=== PATIENT | male | born 2000 | race Two or more races ===

== ENCOUNTER 2025-01-07 17:33 | Emergency (ER) | payer MEDICAID, SELFPAY ==
[2025-01-07 17:54] VITALS: BP 111/77; PULSE 108; RESP 18; TEMP 37.7; O2SAT 99; BMI 31.9
--- NOTE | 2025-01-07 18:21 | PD.EDDENTL ---
ED Dental RME/HPI General Chief complaint: Fever Stated complaint: FEVER X 1 WK; TONSILS INFLAMMED; 0800 MOTRIN 800MG Time Seen by Provider: 01/07/25 18:01 Source: patient Arrival date/time: 01/07/25 17:33 This is a 24-year-old male who presents to the emergency department with complaints of bilateral swelling of tonsils with exudate. Patient reports he has been ill for 1 week with fevers, throat pain. He was evaluated by his PCP he was given 1 shot patient does not recall the name of the medication that was given. However he states he still continues to have fevers. Denies chest pain, difficulty breathing, difficulty swallowing. Related Data Home Medications ?Medication ?Instructions ?Recorded ?Confirmed ciprofloxacin HCl 500 mg tablet 500 mg PO Q12H 06/05/22 06/05/22 (Cipro) phenazopyridine 200 mg tablet 200 mg PO TID 06/05/22 06/05/22 Previous Rx's ?Medication ?Instructions ?Recorded clindamycin HCl 300 mg capsule 300 mg PO Q8H 7 days #21 caps 01/07/25 Allergies Allergy/AdvReac Type Severity Reaction Status Date / Time No Known Allergies Allergy Verified 01/07/25 17:36 Review of Systems Review of Systems Systems Reviewed: All systems reviewed, normal except as documented Narrative Review of Systems: Gen: ++fever, no chills, no weight loss EYES: No discharge, no visual changes, no pain HEENT: No ear pain, no congestion, ++ sore throat PULM: No shortness of breath, no cough, no congestion CV: No chest pain, no dyspnea on exertion, no palpitations GI: No nausea, no vomiting, no diarrhea, no pain, no constipation : No frequency, no urgency,? no dysuria Musc/skel: No joint pain, no back pain Skin: No rash? Psyc: No hallucinations, no depression Heme/Lymph: No easy bleeding or bruising tendencies Neuro: No weakness, no headache Course Quality Measures none Orders Category Date Time Status Clindamycin Vial [Cleocin vial] Med 01/07/25 18:14 Discontinued 600 mg IM X1 ONE Dexamethasone Inj [Decadron Inj] Med 01/07/25 18:14 Discontinued 10 mg PO X1 ONE Vital Signs Vital signs: Vital Signs Temperature 99.8 F 01/07/25 17:54 Pulse Rate 108 H 01/07/25 17:54 Respiratory Rate 18 01/07/25 17:54 Blood Pressure 111/77 01/07/25 17:54 Pulse Oximetry (%) 99 01/07/25 17:54 Oxygen Delivery Method Room Air 01/07/25 17:54 Dental / Oral MDM Narrative MDM Narrative:: Pt made aware will treat as presumptive streptococcal pharyngitis based on sypmtoms. Centor criteria 4, will start abx empirically.because I am unsure if the patient received Bicillin shot I will go ahead and put him on clindamycin . Patient is to receive his first dose here, and dexamethasone for swelling of his tonsils. Advised to take OTC NSAID prn pain or fevers. Fluids, soups, tea, honey advised. Use humidifier at nights. Replace toothbrush. At this time patient is stable for discharge. Strict ER precautions given.. Patient data External records reviewed:: [facility] previous records Clinical information provided by:: patient Social determinants that could affect healthcare access:: none Patient has the following chronic illnesses:: None How is presenting disease/condition affected by chronic disease/condition?: no chronic disease Evaluation data The following diagnostics were reviewed and interpreted by me:: other (specify) Lab and/or radiology exams considered but not ordered:: No Interpretation Summary: Not applicable Medications / Prescriptions Medications or Prescriptions considered but not ordered:: Pain medication Medication administrations:: Medication Administration History Discontinued Medications Clindamycin Phosphate (Clindamycin Phos Inj 150 Mg/Ml Vial 6 Ml) 600 mg IM X1 ONE Stop: 01/07/25 18:15 Last Admin: 01/07/25 18:46 Dose: 600 mg Documented By: Dexamethasone Sodium Phosphate (Dexamethasone Sod Phos Inj 10 Mg/Ml Vial) 10 mg PO X1 ONE Stop: 01/07/25 18:15 Last Admin: 01/07/25 18:46 Dose: 10 mg Documented By: All medications administered and effective Consultations Consultation(s) initiated? (list below): No Diagnosis Most likely diagnosis given after review of the tests above:: Strep pharyngitis Admission Indicated Admission indicated?: not indicated Admission Request Was there a request for admission?: No Disposition Plan Disposition Plan: Discharge Discharge Attestation Discharge Attestation: The patient and all family members were given an opportunity to ask questions and understood the discharge instructions. Discharge instructions specifically effects, indications for sooner follow up or return to the emergency department, and the expected course of current diagnosis. Patient condition: Stable Discharge Plan Plan Patient Disposition: HOME (Self Care) Patient condition on transfer: Stable Prescriptions/Referrals Prescriptions/Med Rec: New clindamycin HCl 300 mg capsule 300 mg PO Q8H 7 Days Qty: 21 0RF No Action phenazopyridine 200 mg Tablet 200 mg PO TID ciprofloxacin HCl [Cipro] 500 mg Tablet 500 mg PO Q12H Problem List Clinical Impression: Acute streptococcal pharyngitis Patient/Caregiver Discharge Instructions Discharge Activity: activity as tolerated Education Materials: ED Pharyngitis, Strep (Presumed) Additional Instructions: Please do warm salt gargles 3 times a day. Take your oral antibiotics as directed. Can alternate between Tylenol ibuprofen for pain or fever control. Follow-up with your primary doctor in 2 days. Return the emergency department this any worsening symptoms change in condition. Print Language: Japanese Stand Alone Forms: Kimmie Award Info., Patient Portal Info Letter CHELSY/KANDIS Supervising Physician CHELSY/KANDIS Supervising Physician: estevan
[2025-01-07] MEDS: CLINDAMYCIN PHOS INJ 150 MG/ML VIAL 6 ML 600 MG IM (18:46)
[2025-01-07] MEDS: DEXAMETHASONE SOD PHOS INJ 10 MG/ML VIAL PO (18:46)
== END 2025-01-07 19:19 | disposition home or self-care (01) ==
LOC: SERX 18:42
PROVIDERS: Emergency Provider Emergency Medicine
DX: J02.0 Streptococcal pharyngitis (principal)
CPT/HCPCS: 96372; 99283; J0736; J1100

== ENCOUNTER 2025-03-04 13:37 | Emergency (ER) | payer MEDICAID, SELFPAY ==
[2025-03-04 13:45] VITALS: BP 134/87; PULSE 110; RESP 18; TEMP 39.4; O2SAT 100; BMI 30.7
[2025-03-04] MEDS: IBUPROFEN TAB 600 MG TABLET PO (14:35)
[2025-03-04 14:36] VITALS: TEMP 39.4
[2025-03-04] MEDS: ACETAMINOPHEN 500 MG TABLET 1000 MG PO (14:36)
[2025-03-04] MEDS: DEXAMETHASONE SOD PHOS INJ 10 MG/ML VIAL PO (14:37)
[2025-03-04] MEDS: PEN G BENZ (Bicillin LA) 1.2 MMU/2 ML SYRG 2.4 MMU IM (14:57)
[2025-03-04 15:35] VITALS: TEMP 38.2
--- NOTE | 2025-03-04 15:36 | PD.EDADULT ---
ED General RME/HPI General Chief complaint: General Adult/Misc Complain Stated complaint: SWOLLEN TONSILS Time Seen by Provider: 03/04/25 13:59 Source: patient Arrival date/time: 03/04/25 13:37 24-year-old male with no known medical history presents to the emergency room with a chief complaint of sore throat, and swollen tonsils x 3 days Mode of arrival: ambulatory Limitations: no limitations Related Data Home Medications ?Medication ?Instructions ?Recorded ?Confirmed ciprofloxacin HCl 500 mg tablet 500 mg PO Q12H 06/05/22 06/05/22 (Cipro) phenazopyridine 200 mg tablet 200 mg PO TID 06/05/22 06/05/22 Previous Rx's ?Medication ?Instructions ?Recorded amoxicillin 875 mg-potassium 1 tab PO BID 7 days #14 tabs 03/04/25 clavulanate 125 mg tablet Allergies Allergy/AdvReac Type Severity Reaction Status Date / Time No Known Allergies Allergy Verified 03/04/25 13:41 Review of Systems Review of Systems Systems Reviewed: All systems reviewed, normal except as documented Constitutional Constitutional: Reports system reviewed and no additional complaints, except as documented, Denies fatigue, Denies fever(s), Denies headache(s) and Denies weakness Eyes Eyes: Reports system reviewed and no additional complaints, except as documented, Denies blurry vision and Denies change in vision ENT Ears, Nose, Mouth, and Throat: Reports system reviewed and no additional complaints, except as documented, Denies otalgia, Denies headache(s), Denies nasal congestion, Reports sore throat, Denies throat swelling and Denies vertigo Cardiovascular Cardiovascular: Reports system reviewed and no additional complaints, except as documented, Denies chest pain, Denies dyspnea and Denies dyspnea on exertion Respiratory Respiratory: Reports system reviewed and no additional complaints, except as documented, Denies chest congestion, Denies cough, Denies dyspnea, Denies dyspnea on exertion and Denies wheezing Gastrointestinal Gastrointestinal: Reports system reviewed and no additional complaints, except as documented, Denies abdominal pain, Denies cramping, Denies nausea and Denies vomiting Genitourinary Genitourinary: Reports system reviewed and no additional complaints, except as documented, Denies dysuria and Denies hematuria Musculoskeletal Musculoskeletal: Reports system reviewed and no additional complaints, except as documented and Denies back pain Integumentary/Breasts Skin/Breast: Reports system reviewed and no additional complaints, except as documented and Denies wounds Neurologic Neurologic: Reports system reviewed and no additional complaints, except as documented, Denies confusion, Denies headache(s), Denies lack of coordination, Denies vertigo and Denies weakness Psychiatric Psychiatric: Reports system reviewed and no additional complaints, except as documented, Denies anxiety, Denies confusion, Denies depression, Denies paranoia, Denies suicidal ideation and Denies tactile hallucinations Endocrine Endocrine: Reports system reviewed and no additional complaints, except as documented and Denies fatigue Hematologic/Lymphatic Hematologic/Lymphatic: Reports system reviewed and no additional complaints, except as documented and Denies lymphadenopathy Allergic/Immunologic Allergic/Immunologic: Reports system reviewed and no additional complaints, except as documented, Denies throat swelling, Denies urticaria and Denies wheezing Past Medical History Social History SMOKING STATUS: Never smoker ED Exam General Limitations: Present no limitations General appearance: Present alert and in no apparent distress Head Head exam: Present atraumatic Eye Eye exam: Present normal appearance, PERRL and EOMI ENT ENT exam: Present normal exam, normal oropharynx and mucous membranes moist Expanded ENT Exam External ear exam: Present normal external inspection Mouth exam: Present normal external inspection Teeth exam: Present normal inspection Throat exam: Present tonsillar erythema, tonsillomegaly and tonsillar exudate; Absent R peritonsillar mass, L peritonsillar mass or muffled voice Neck Neck exam: Present normal inspection, full ROM and trachea midline Chest Chest inspection: Present normal inspection and symmetric chest wall rise Respiratory Respiratory exam: Present normal lung sounds bilaterally Cardiovascular Cardiovascular exam: Present regular rate, normal rhythm and normal heart sounds Abdominal Exam Abdominal exam: Present soft and normal bowel sounds Extremities Exam Extremities exam: Present normal inspection and full ROM Back Exam Back exam: Present normal inspection and full ROM Neurological Exam Neurological exam: Present alert, oriented X3 and CN II-XII intact Psychiatric Psychiatric exam: Present normal affect and normal mood Skin Skin exam: Present warm, dry, intact and normal color Course Quality Measures none Orders Category Date Time Status Acetaminophen Tab [Tylenol ES Tab] Med 03/04/25 13:58 Discontinued 1,000 mg PO X1 ONE Dexamethasone Inj [Decadron Inj] Med 03/04/25 13:58 Discontinued 10 mg PO X1 ONE Ibuprofen Tab [Motrin Tab] Med 03/04/25 13:58 Discontinued 600 mg PO X1 ONE PEN G FELICIA (Bicillin LA) [Bicillin La Inj] Med 03/04/25 13:58 Discontinued 2.4 mmu IM X1 ONE Vital Signs Vital signs: Vital Signs Temperature 103 F H 03/04/25 13:45 Pulse Rate 110 H 03/04/25 13:45 Respiratory Rate 18 03/04/25 13:45 Blood Pressure 134/87 H 03/04/25 13:45 Pulse Oximetry (%) 100 03/04/25 13:45 Oxygen Delivery Method Room Air 03/04/25 13:45 O2 saturation 100% within normal limits Discharge Plan Plan Patient Disposition: HOME (Self Care) Disposition Comment: Stable Prescriptions/Referrals Prescriptions/Med Rec: New amoxicillin-pot clavulanate 875-125 mg tablet 1 tab PO BID 7 Days Qty: 14 0RF No Action phenazopyridine 200 mg Tablet 200 mg PO TID ciprofloxacin HCl [Cipro] 500 mg Tablet 500 mg PO Q12H Problem List Clinical Impression: Pharyngitis Patient/Caregiver Discharge Instructions Additional Instructions: Please follow-up with your primary care provider in the next 24 to 48 hours. Medication was sent to your pharmacy please pick it up and take it as indicated. For any evidence of worsening signs or symptoms return to the emergency room immediately Print Language: Azeri Stand Alone Forms: Kimmie Award Info., Patient Portal Info Letter PA/STENCIL INSPECTOR Supervising Physician PA/KANDIS Supervising Physician: Dr. Monte MDM Patient Acuity Low Acuity (complete MDM as needed) Narrative: 24-year-old male with no known medical history presents to the emergency room with a chief complaint of sore throat, and swollen tonsils x 3 days Patient is febrile at 103 and tachycardic at 110. Antipyretics were given with significant improvement to the patient's symptoms. Physical examination shows an erythemic posterior pharynx with exudates to the bilateral tonsillar pillars. The findings are consistent with pharyngitis. There is no left-sided or right-sided peritonsillar abscess on my examination. There is no trismus or muffled voice. Antibiotics were given to the patient. Patient was given strict return precautions in 48 hours if his symptoms did not get any better. Patient was discharged and educated to follow-up with primary care provider in the next 24 to 48 hours and return to the emergency room for any evidence of worsening signs or symptoms Clinical Information Provided by: none Medical Records reviewed None Meds/Rx considered, not ordered None Labs/Rad/Tests considered, not ordered None Chronic Illness/Social Conditions which may negatively complicate care or outcome(s)-explain: None or not applicable EKG EKG not done Labs Labs: Interpreted by me Imaging Imaging interpretation: Interpreted by me Medication Administration(s) Medication Administration History Discontinued Medications Acetaminophen (Acetaminophen 500 Mg Tablet) 1,000 mg PO X1 ONE Stop: 03/04/25 13:59 Last Admin: 03/04/25 14:36 Dose: 1,000 mg Documented By: Dexamethasone Sodium Phosphate (Dexamethasone Sod Phos Inj 10 Mg/Ml Vial) 10 mg PO X1 ONE Stop: 03/04/25 13:59 Last Admin: 03/04/25 14:37 Dose: 10 mg Documented By: Ibuprofen (Ibuprofen Tab 600 Mg Tablet) 600 mg PO X1 ONE Stop: 03/04/25 13:59 Last Admin: 03/04/25 14:35 Dose: 600 mg Documented By: Penicillin G Benzathine (Pen G Felicia (Bicillin La) 1.2 Mmu/2 Ml Syrg) 2.4 mmu IM X1 ONE Stop: 03/04/25 13:59 Last Admin: 03/04/25 14:57 Dose: 2.4 mmu Documented By: Diagnosis Differential Diagnosis ED Complaint MDM: Pharyngitis/tonsillitis/upper respiratory infection/peritonsillar abscess Diagnoses ruled out: Upper respiratory infection/tonsillitis/peritonsillar abscess
[2025-03-04 15:41] VITALS: TEMP 38.2
== END 2025-03-04 15:42 | disposition home or self-care (01) ==
LOC: SERX 15:17
PROVIDERS: Emergency Provider Emergency Medicine; PCP Family Medicine
DX: J02.9 Acute pharyngitis, unspecified (principal)
CPT/HCPCS: 96372; 99283; J0561; J1100; A9270

== ENCOUNTER 2025-03-07 15:18 | Emergency (ER) | payer MEDICAID, SELFPAY ==
[2025-03-07 15:27] VITALS: BP 126/82; PULSE 107; RESP 18; TEMP 37.4; O2SAT 97
--- NOTE | 2025-03-07 15:39 | PD.EDDENTL ---
ED Dental RME/HPI General Chief complaint: Dental/Oral/Throat Stated complaint: SWOLLEN TONSILS; CAME IN ON 03/04; NO IMPROVEMENT Time Seen by Provider: 03/07/25 15:25 Arrival date/time: 03/07/25 15:18 Mode of arrival: ambulatory Limitations: no limitations RME / HPI RME / HPI Narrative: 24-year-old male presents urgent care with complaint of swollen tonsils. Patient had been seen this last Saturday and diagnosed with tonsillitis given a shot of Bicillin and sent home with Augmentin. Patient tells me he has not gotten any better. Continues to have difficulty swallowing, weak and continues to swallow fluids. Onset (ago): week(s) (1 week) Severity: mild Severity scale (1-10): 4 Exacerbating factors: drinking fluids and swallowing Associated symptoms: fever Treatment prior to arrival: other (Bicillin, Augmentin) Related Data Home Medications ?Medication ?Instructions ?Recorded ?Confirmed ciprofloxacin HCl 500 mg tablet 500 mg PO Q12H 06/05/22 06/05/22 (Cipro) phenazopyridine 200 mg tablet 200 mg PO TID 06/05/22 06/05/22 Previous Rx's ?Medication ?Instructions ?Recorded amoxicillin 875 mg-potassium 1 tab PO BID 7 days #14 tabs 03/04/25 clavulanate 125 mg tablet Allergies Allergy/AdvReac Type Severity Reaction Status Date / Time No Known Allergies Allergy Verified 03/07/25 15:20 Review of Systems Review of Systems Systems Reviewed: All systems reviewed, normal except as documented ED Exam General Limitations: Present no limitations General appearance: Present alert and in no apparent distress Eye Eye exam: Present normal appearance and PERRL ENT ENT exam: Present normal exam and normal oropharynx Neck Neck exam: Present other (Lymphadenopathy, visible distention.) Chest Chest inspection: Present normal inspection Respiratory Respiratory exam: Present normal lung sounds bilaterally Extremities Exam Extremities exam: Present normal inspection and full ROM Back Exam Back exam: Present normal inspection Neurological Exam Neurological exam: Present alert and oriented X3 Psychiatric Psychiatric exam: Present normal affect and normal mood Course Quality Measures none Orders Category Date Time Status [place] Screen Stat Lab 03/07/25 16:49 Completed Strep A Rapid Stat Lab 03/07/25 15:56 Completed Vital Signs Vital signs: Vital Signs Temperature 99.3 F 03/07/25 15:27 Pulse Rate 107 H 03/07/25 15:27 Respiratory Rate 18 03/07/25 15:27 Blood Pressure 126/82 03/07/25 15:27 Pulse Oximetry (%) 97 03/07/25 15:27 Oxygen Delivery Method Room Air 03/07/25 15:27 Pulse ox 97% room Dental / Oral Patient data External records reviewed:: None Clinical information provided by:: patient Social determinants that could affect healthcare access:: none Patient has the following chronic illnesses:: NA How is presenting disease/condition affected by chronic disease/condition?: no chronic disease Evaluation data The following diagnostics were reviewed and interpreted by me:: lab results (MONO POSITIVE) Lab and/or radiology exams considered but not ordered:: na Interpretation Summary: NA Medications / Prescriptions Medications or Prescriptions considered but not ordered:: NA Medication administrations:: NA Consultations Consultation(s) initiated? (list below): No Diagnosis Most likely diagnosis given after review of the tests above:: MONO Admission Indicated Admission indicated?: not indicated Admission Request Was there a request for admission?: No Disposition Plan Disposition Plan: Discharge Discharge Attestation Discharge Attestation: The patient and all family members were given an opportunity to ask questions and understood the discharge instructions. Discharge instructions specifically effects, indications for sooner follow up or return to the emergency department, and the expected course of current diagnosis. Patient condition: Stable Discharge Plan Plan Patient Disposition: HOME (Self Care) Prescriptions/Referrals Prescriptions/Med Rec: No Action phenazopyridine 200 mg Tablet 200 mg PO TID ciprofloxacin HCl [Cipro] 500 mg Tablet 500 mg PO Q12H amoxicillin-pot clavulanate 875-125 mg tablet 1 tab PO BID 7 Days Qty: 14 0RF Referrals: Wan Lazcano PA-C [Primary Care Provider] - In 1 week Problem List Clinical Impression: [place] exposure Patient/Caregiver Discharge Instructions Print Language: Ukrainian Stand Alone Forms: Kimmie Award Info., Patient Portal Info Letter CHELSY/KANDIS Supervising Physician CHELSY/KANDIS Supervising Physician: EMMA
[2025-03-07 16:57] LABS: Strep A Rapid Negative (Negative)
[2025-03-07 17:38] LABS: Mono Screen Positive (Negative)
== END 2025-03-07 19:07 | disposition home or self-care (01) ==
PROVIDERS: Physician Assistant; Emergency Provider Emergency Medicine; PCP Physician Assistant Medical
DX: Z20.828 Contact with and (suspected) exposure to other viral communicable diseases (principal); R13.10 Dysphagia, unspecified
CPT/HCPCS: 36415; 86308; 87651; 99283